=== PATIENT | female | born 1940 | race Caucasian/White ===

== ENCOUNTER 2018-01-03 17:45 | Inpatient (IN) | payer MEDICARE, MEDICAID ==
[~2018-01-03] VITALS: Ht 152.4 cm; Wt 42.0 kg
[~2018-01-03 17:45] MED LIST: DOCU-274 PO; FERR324T4 PO; GABA-532 PO; MULT-1074 PO; PANT40TA4 PO; TRAM50TA2 PO
[2018-01-03 19:06] LABS: BASOPHILS % (AUTO) 0.6 % (0-1); EOSINOPHILS # (AUTO) 0.5 X10'3 (0-0.9); EOSINOPHILS % (AUTO) 6.3 % (0-6); LYMPHOCYTES # (AUTO) 1.5 X10'3 (1.1-4.8); MEAN CORPUSCULAR HEMOGLOBIN 26.8 PG (27.0-31.0); MEAN CORPUSCULAR HGB CONC 32.3 % (33.0-36.5); MEAN PLATELET VOLUME 8.1 FL (7.4-10.4); MONOCYTES # (AUTO) 0.6 X10'3 (0-0.9); MONOCYTES % (AUTO) 8.4 % (2-12); NEUTROPHILS # (AUTO) 4.6 X10'3 (1.8-7.7); NEUTROPHILS % (AUTO) 63.7 % (42-75); PLATELET COUNT 451 X10'3 (140-440); RED BLOOD COUNT 2.56 X10'6 (4.20-5.60); WHITE BLOOD COUNT 7.3 X10'3 (4.5-11.0)
[2018-01-03 19:16] LABS: HEMATOCRIT 21.2 % (35.0-45.0); HEMOGLOBIN 6.9 g/dl (12.0-16.0)
[2018-01-03 19:17] LABS: PROTHROMBIN TIME 10.3 SECONDS (9.0-12.0)
[2018-01-03 19:21] LABS: ALANINE AMINOTRANSFERASE 18 U/L (12-78); ALBUMIN 2.4 G/DL (3.4-5.0); ALBUMIN/GLOBULIN RATIO 0.4 (1.1-1.5); ALKALINE PHOSPHATASE 90 IU/L (46-116); ANION GAP 12 (8-16); ASPARTATE AMINO TRANSFERASE 32 U/L (10-37); BILIRUBIN,TOTAL 0.4 MG/DL (0.1-1.0); BLOOD UREA NITROGEN 15 MG/DL (7-18); BUN/CREATININE RATIO 23.1 (6.6-38.0); CALCIUM 8.4 MG/DL (8.5-10.1); CHLORIDE 103 MMOL/L (99-107); CREATININE 0.65 MG/DL (0.40-0.90); GLUCOSE 92 MG/DL (70-104); POTASSIUM 3.6 MMOL/L (3.5-5.1); SODIUM 139 MMOL/L (135-145); TOTAL CARBON DIOXIDE 24.2 MMOL/L (24-32); eGFR 88 ML/MIN
[2018-01-03] MEDS ORDERED: normal saline 1000ML IV soln IV ONE ×2 (19:40→19:45)
[2018-01-03] MEDS ORDERED: pantoprazole IV 80 MG in normal saline 100ml IV soln 100 ML IV ONE (19:45)
[2018-01-03] MEDS ORDERED: pantoprazole 40 MG vial IV SCH (19:55)
[2018-01-03 20:01] LABS: CLARITY,URINE CLEAR (Clear); COLOR,URINE STRAW (Yellow); GLUCOSE, URINE NEGATIVE (Neg); KETONES,URINE NEGATIVE (Neg); LEUKOCYTE ESTERASE ,URINE SMALL (Neg); NITRITES, URINE NEGATIVE (Neg); OCCULT BLOOD,URINE TRACE-INTACT (Neg); PH,URINE 7.5 (4.8-8.0); PROTEIN,URINE NEGATIVE (Neg); UROBILINOGEN,URINE 0.2 E.U/dL (0.2-1.0)
[2018-01-03 20:08] LABS: UA COLLECTION TYPE CLN CATCH MIDSTREAM
[2018-01-03 20:10] LABS: BACTERIA,URINE FEW /HPF (Neg); SQUAMOUS EPITHELIAL CELL,UR NONE SEEN /LPF (FEW)
[2018-01-03] MEDS ORDERED: CefTRIAXone 2gm/D5W 50ml 50 ML IV ONE (20:40)
[2018-01-03] MEDS: pantoprazole 40MG/NS 100ML BAG 100 ML IV SCH (21:09)
[2018-01-03] MEDS: normal saline 1000ml 1,000 ML IV SCH (21:58)
[2018-01-03] MEDS ORDERED: morphine 2 MG/ML inj. syringe IV PRN (22:00)
[2018-01-03] MEDS ORDERED: acetaminophen 325mg tablet PO PRN (22:00)
[2018-01-03] MEDS ORDERED: docusate sod 100mg capsule PO PRN (22:00)
[2018-01-03] MEDS ORDERED: mag hydrox/Alum hydrox/simeth 30ml oral suspension PO PRN (22:00)
[2018-01-03] MEDS ORDERED: ondansetron/PF 4mg/2ml inj IV PRN (22:00)
[2018-01-03] MEDS ORDERED: magnesium hydroxide 30ml (MOM) UD suspension PO PRN (22:00)
[2018-01-03] MEDS ORDERED: ipratropium/albuterol 3ml nebule NEB PRN (22:05)
[2018-01-03] MEDS ORDERED: azithromycin/NS 500mg/250ml 250 ML IV SCH (22:05)
[2018-01-03] MEDS ORDERED: HYDROcodone/acetaminophen 10/325mg tab PO PRN (22:20)
[2018-01-03] MEDS ORDERED: BUSP5TAB3 PO (22:35)
[2018-01-03] MEDS ORDERED: TRAM50TA2 PO (22:36)
[2018-01-03] MEDS ORDERED: MELO-102 PO (22:37)
[2018-01-03] MEDS ORDERED: DIPH25CA83 PO (22:37)
[2018-01-03] MEDS ORDERED: gabapentin 300mg capsule PO PRN (22:45)
[2018-01-03] MEDS: HYDROcodone/acetaminophen 10/325mg tab PO PRN (23:56)
[2018-01-04] VITALS (19 sets, daily range): BP systolic 117–179; BP diastolic 51–98
[2018-01-04] MEDS: diphenhydrAMINE 25mg capsule PO PRN (00:19)
[2018-01-04] MEDS: HYDROcodone/acetaminophen 10/325mg tab PO PRN (04:30)
[2018-01-04] MEDS ORDERED: LORazepam 0.5 MG tablet PO PRN (05:05)
[2018-01-04] MEDS: pantoprazole 40MG/NS 100ML BAG 100 ML IV SCH ×6 (06:00→23:07)
[2018-01-04] MEDS: normal saline 1000ml 1,000 ML IV SCH (07:58)
[2018-01-04] MEDS: busPIRone 5mg tablet PO SCH ×2 (08:00→21:00)
[2018-01-04] MEDS ORDERED: furosemide 40mg/4ml inj IV ONE (08:35)
[2018-01-04] MEDS ORDERED: morphine 2 MG/ML inj. syringe IV ONE (08:35)
[2018-01-04 09:12] LABS: BASOPHILS # (AUTO) 0.1 X10'3 (0-0.2); BASOPHILS % (AUTO) 0.9 % (0-1); EOSINOPHILS # (AUTO) 0.4 X10'3 (0-0.9); EOSINOPHILS % (AUTO) 5.3 % (0-6); HEMATOCRIT 35.3 % (35.0-45.0); HEMOGLOBIN 11.5 g/dl (12.0-16.0); LYMPHOCYTES % (AUTO) 28.6 % (21-51); MEAN CORPUSCULAR HEMOGLOBIN 28.2 PG (27.0-31.0); MEAN CORPUSCULAR HGB CONC 32.7 % (33.0-36.5); MEAN CORPUSCULAR VOLUME 86.1 FL (78-98); MEAN PLATELET VOLUME 8.5 FL (7.4-10.4); MONOCYTES # (AUTO) 0.7 X10'3 (0-0.9); MONOCYTES % (AUTO) 10.1 % (2-12); NEUTROPHILS # (AUTO) 3.8 X10'3 (1.8-7.7); NEUTROPHILS % (AUTO) 55.1 % (42-75); PLATELET COUNT 383 X10'3 (140-440); RED CELL DISTRIBUTION WIDTH 16.1 % (11.5-14.5); WHITE BLOOD COUNT 6.9 X10'3 (4.5-11.0)
[2018-01-04 09:23] LABS: TROPONIN I < 0.04 NG/ML (0.0-0.05)
[2018-01-04] MEDS ORDERED: LIDOcaine Viscous 15ml cup ONE (09:47)
[2018-01-04] MEDS ORDERED: fentaNYL/PF 50MCG/1 ML 2ML syringe ONE (09:47)
[2018-01-04] MEDS ORDERED: MIDAZolam 5mg/5ml vial ONE (09:47)
[2018-01-04 09:48] LABS: ALBUMIN 2.3 G/DL (3.4-5.0); ANION GAP 12 (8-16); BLOOD UREA NITROGEN 9 MG/DL (7-18); BUN/CREATININE RATIO 14.1 (6.6-38.0); CALCIUM 7.9 MG/DL (8.5-10.1); CHLORIDE 108 MMOL/L (99-107); CREATININE 0.64 MG/DL (0.40-0.90); GLUCOSE 118 MG/DL (70-104); POTASSIUM 3.5 MMOL/L (3.5-5.1); SODIUM 141 MMOL/L (135-145); TOTAL CARBON DIOXIDE 21.2 MMOL/L (24-32); eGFR 90 ML/MIN
[2018-01-04] MEDS: CefTRIAXone 2gm/D5W 50ml 50 ML IV SCH (11:41)
[2018-01-04] MEDS: potassium Cl 20 mEq SR tablet PO SCH ×2 (13:00→21:00)
[2018-01-04] MEDS ORDERED: LORazepam 2 mg/ml vial IV PRN ×2 (13:35→16:55)
[2018-01-04] MEDS: ipratropium/albuterol 3ml nebule NEB SCH ×3 (15:42→23:26)
[2018-01-04 16:15] LABS: BASOPHILS % (AUTO) 0.6 % (0-1); EOSINOPHILS # (AUTO) 0.3 X10'3 (0-0.9); EOSINOPHILS % (AUTO) 3.6 % (0-6); HEMATOCRIT 34.6 % (35.0-45.0); HEMOGLOBIN 11.5 g/dl (12.0-16.0); LYMPHOCYTES # (AUTO) 1.7 X10'3 (1.1-4.8); LYMPHOCYTES % (AUTO) 19.7 % (21-51); MEAN CORPUSCULAR HEMOGLOBIN 27.8 PG (27.0-31.0); MEAN CORPUSCULAR HGB CONC 33.2 % (33.0-36.5); MEAN CORPUSCULAR VOLUME 83.7 FL (78-98); MEAN PLATELET VOLUME 8.5 FL (7.4-10.4); MONOCYTES # (AUTO) 0.9 X10'3 (0-0.9); MONOCYTES % (AUTO) 10.3 % (2-12); NEUTROPHILS # (AUTO) 5.6 X10'3 (1.8-7.7); NEUTROPHILS % (AUTO) 65.8 % (42-75); PLATELET COUNT 464 X10'3 (140-440); RED BLOOD COUNT 4.13 X10'6 (4.20-5.60); RED CELL DISTRIBUTION WIDTH 16.2 % (11.5-14.5); WHITE BLOOD COUNT 8.5 X10'3 (4.5-11.0)
[2018-01-04] MEDS: furosemide 40mg/4ml inj IV SCH (16:47)
[2018-01-04] MEDS: morphine 2 MG/ML inj. syringe IV PRN ×2 (16:59→21:50)
[2018-01-04] MEDS: gabapentin 300mg capsule PO SCH (20:00)
[2018-01-04 20:55] LABS: BASOPHILS % (AUTO) 0.2 % (0-1); EOSINOPHILS % (AUTO) 0.5 % (0-6); HEMATOCRIT 38.6 % (35.0-45.0); HEMOGLOBIN 12.8 g/dl (12.0-16.0); LYMPHOCYTES % (AUTO) 11.3 % (21-51); MEAN CORPUSCULAR HEMOGLOBIN 27.6 PG (27.0-31.0); MEAN CORPUSCULAR VOLUME 83.6 FL (78-98); MEAN PLATELET VOLUME 8.3 FL (7.4-10.4); MONOCYTES # (AUTO) 0.7 X10'3 (0-0.9); MONOCYTES % (AUTO) 7.7 % (2-12); NEUTROPHILS # (AUTO) 7.1 X10'3 (1.8-7.7); NEUTROPHILS % (AUTO) 80.3 % (42-75); PLATELET COUNT 500 X10'3 (140-440); RED BLOOD COUNT 4.62 X10'6 (4.20-5.60); RED CELL DISTRIBUTION WIDTH 16.6 % (11.5-14.5); WHITE BLOOD COUNT 8.9 X10'3 (4.5-11.0)
[2018-01-05] VITALS: BP 115/53
[2018-01-05] MEDS: furosemide 40mg/4ml inj IV SCH ×2 (00:34→07:51)
[2018-01-05] MEDS: morphine 2 MG/ML inj. syringe IV PRN ×3 (01:55→18:25)
[2018-01-05] MEDS: ipratropium/albuterol 3ml nebule NEB SCH ×6 (03:14→23:11)
[2018-01-05] MEDS: pantoprazole 40MG/NS 100ML BAG 100 ML IV SCH ×2 (04:23→10:21)
[2018-01-05] MEDS: CefTRIAXone 2gm/D5W 50ml 50 ML IV SCH (07:53)
[2018-01-05 08:00] VITALS: BP 119/71
[2018-01-05] MEDS: potassium Cl 20 mEq SR tablet PO SCH ×3 (08:23→19:32)
[2018-01-05] MEDS: gabapentin 300mg capsule PO SCH ×2 (08:23→19:32)
[2018-01-05] MEDS: busPIRone 5mg tablet PO SCH ×3 (08:23→22:15)
[2018-01-05 10:01] LABS: BASOPHILS % (AUTO) 0.5 % (0-1); EOSINOPHILS # (AUTO) 0.1 X10'3 (0-0.9); EOSINOPHILS % (AUTO) 1.4 % (0-6); HEMATOCRIT 34.2 % (35.0-45.0); HEMOGLOBIN 11.4 g/dl (12.0-16.0); LYMPHOCYTES # (AUTO) 1.4 X10'3 (1.1-4.8); LYMPHOCYTES % (AUTO) 19.9 % (21-51); MEAN CORPUSCULAR HEMOGLOBIN 28.4 PG (27.0-31.0); MEAN CORPUSCULAR HGB CONC 33.4 % (33.0-36.5); MEAN CORPUSCULAR VOLUME 85.1 FL (78-98); MEAN PLATELET VOLUME 8.6 FL (7.4-10.4); MONOCYTES # (AUTO) 0.6 X10'3 (0-0.9); MONOCYTES % (AUTO) 9.2 % (2-12); NEUTROPHILS # (AUTO) 4.7 X10'3 (1.8-7.7); PLATELET COUNT 495 X10'3 (140-440); RED BLOOD COUNT 4.02 X10'6 (4.20-5.60); RED CELL DISTRIBUTION WIDTH 16.4 % (11.5-14.5); WHITE BLOOD COUNT 6.8 X10'3 (4.5-11.0)
[2018-01-05 10:10] LABS: ALBUMIN 2.6 G/DL (3.4-5.0); ANION GAP 15 (8-16); BLOOD UREA NITROGEN 20 MG/DL (7-18); BUN/CREATININE RATIO 21.5 (6.6-38.0); CHLORIDE 104 MMOL/L (99-107); CREATININE 0.93 MG/DL (0.40-0.90); GLUCOSE 134 MG/DL (70-104); SODIUM 142 MMOL/L (135-145); TOTAL CARBON DIOXIDE 22.7 MMOL/L (24-32); eGFR 58 ML/MIN
[2018-01-05 10:14] LABS: POTASSIUM 2.8 MMOL/L (3.5-5.1)
[2018-01-05] MEDS ORDERED: potassium Cl 40MEQ/NS 500ml 500 ML IV PRN ×2 (10:40)
[2018-01-05] MEDS ORDERED: magnesium 1gm/100ml D5W IVPB 100 ML IV PRN (10:40)
[2018-01-05] MEDS ORDERED: magnesium Cl slow-release 64mg tablet PO PRN (10:40)
[2018-01-05] MEDS ORDERED: potassium Cl 20 mEq SR tablet PO PRN (10:40)
[2018-01-05] MEDS ORDERED: magnesium 4gm in 100ml NS 100 ML IV PRN (10:40)
[2018-01-05 11:00] VITALS: BP 100/47
[2018-01-05 12:38] VITALS: BP_SYST 100; BP_SYST 109; BP_SYST 119; BP_DIAS 47; BP_DIAS 61; BP_DIAS 78
[2018-01-05] MEDS: traMADol 50MG tablet PO PRN ×2 (12:48→22:16)
[2018-01-05] MEDS: lactose-reduced food (Ensure Enlive) - 237ml bottle PO SCH ×2 (13:00→17:51)
[2018-01-05 13:04] LABS: H PYLORI ANTIBODY NEGATIVE (Neg)
[2018-01-05] MEDS: furosemide 20 MG/2 ML vial IV SCH (16:46)
[2018-01-05] MEDS: potassium Cl 20 mEq SR tablet PO PRN ×2 (16:47→22:15)
[2018-01-05] MEDS ORDERED: normal saline 250ml IV soln 250 ML IV ONE (17:10)
[2018-01-05 19:00] VITALS: BP_SYST 114; BP_SYST 118; BP_SYST 98; BP_DIAS 50; BP_DIAS 56; BP_DIAS 76
[2018-01-05] MEDS: pantoprazole 40 MG vial IV SCH (19:31)
[2018-01-05] MEDS: lactobacillus rhamnosus 10,000 MMU CELLS/CAPSULE PO SCH (19:37)
[2018-01-06] VITALS (7 sets, daily range): BP systolic 89–131; BP diastolic 44–75
[2018-01-06] MEDS: morphine 2 MG/ML inj. syringe IV PRN ×3 (02:39→16:02)
[2018-01-06] MEDS: ipratropium/albuterol 3ml nebule NEB SCH ×6 (04:02→23:23)
[2018-01-06 05:08] LABS: BASOPHILS # (AUTO) 0.1 X10'3 (0-0.2); BASOPHILS % (AUTO) 0.6 % (0-1); EOSINOPHILS # (AUTO) 0.5 X10'3 (0-0.9); EOSINOPHILS % (AUTO) 5.5 % (0-6); HEMATOCRIT 31.2 % (35.0-45.0); HEMOGLOBIN 10.3 g/dl (12.0-16.0); LYMPHOCYTES # (AUTO) 1.9 X10'3 (1.1-4.8); LYMPHOCYTES % (AUTO) 22.4 % (21-51); MEAN CORPUSCULAR HEMOGLOBIN 28.7 PG (27.0-31.0); MEAN CORPUSCULAR HGB CONC 33.1 % (33.0-36.5); MEAN CORPUSCULAR VOLUME 86.8 FL (78-98); MEAN PLATELET VOLUME 8.7 FL (7.4-10.4); MONOCYTES # (AUTO) 0.7 X10'3 (0-0.9); MONOCYTES % (AUTO) 8.2 % (2-12); NEUTROPHILS # (AUTO) 5.5 X10'3 (1.8-7.7); NEUTROPHILS % (AUTO) 63.3 % (42-75); PLATELET COUNT 480 X10'3 (140-440); RED BLOOD COUNT 3.59 X10'6 (4.20-5.60); RED CELL DISTRIBUTION WIDTH 17.3 % (11.5-14.5); WHITE BLOOD COUNT 8.7 X10'3 (4.5-11.0)
[2018-01-06 05:31] LABS: ALBUMIN 2.3 G/DL (3.4-5.0); ANION GAP 14 (8-16); BLOOD UREA NITROGEN 23 MG/DL (7-18); BUN/CREATININE RATIO 17.6 (6.6-38.0); CALCIUM 8.1 MG/DL (8.5-10.1); CHLORIDE 105 MMOL/L (99-107); CREATININE 1.31 MG/DL (0.40-0.90); GLUCOSE 162 MG/DL (70-104); MAGNESIUM 1.8 MG/DL (1.5-2.4); POTASSIUM 4.3 MMOL/L (3.5-5.1); SODIUM 138 MMOL/L (135-145); TOTAL CARBON DIOXIDE 18.6 MMOL/L (24-32); eGFR 39 ML/MIN
[2018-01-06] MEDS: potassium Cl 20 mEq SR tablet PO SCH ×3 (07:38→19:44)
[2018-01-06] MEDS: lactobacillus rhamnosus 10,000 MMU CELLS/CAPSULE PO SCH ×2 (07:38→19:43)
[2018-01-06] MEDS: gabapentin 300mg capsule PO SCH ×2 (07:38→19:43)
[2018-01-06] MEDS: pantoprazole 40 MG vial IV SCH ×2 (07:38→19:43)
[2018-01-06] MEDS: furosemide 20 MG/2 ML vial IV SCH ×3 (07:39→19:43)
[2018-01-06] MEDS: CefTRIAXone 2gm/D5W 50ml 50 ML IV SCH (07:39)
[2018-01-06] MEDS: traMADol 50MG tablet PO PRN ×2 (07:39→19:44)
[2018-01-06] MEDS: busPIRone 5mg tablet PO SCH ×3 (07:39→19:43)
[2018-01-06] MEDS: lactose-reduced food (Ensure Enlive) - 237ml bottle PO SCH ×3 (07:53→17:26)
[2018-01-06] MEDS: carVEDilol 3.125mg tablet PO SCH (19:44)
[2018-01-07 00:12] VITALS: BP 97/57
[2018-01-07] MEDS: ipratropium/albuterol 3ml nebule NEB SCH ×6 (03:41→23:26)
[2018-01-07 06:50] LABS: BASOPHILS % (AUTO) 0.6 % (0-1); EOSINOPHILS # (AUTO) 0.6 X10'3 (0-0.9); EOSINOPHILS % (AUTO) 8.5 % (0-6); HEMATOCRIT 35.7 % (35.0-45.0); HEMOGLOBIN 11.8 g/dl (12.0-16.0); LYMPHOCYTES # (AUTO) 1.6 X10'3 (1.1-4.8); LYMPHOCYTES % (AUTO) 23.5 % (21-51); MEAN CORPUSCULAR HEMOGLOBIN 29.3 PG (27.0-31.0); MEAN CORPUSCULAR HGB CONC 33.2 % (33.0-36.5); MEAN CORPUSCULAR VOLUME 88.2 FL (78-98); MEAN PLATELET VOLUME 8.5 FL (7.4-10.4); MONOCYTES # (AUTO) 0.8 X10'3 (0-0.9); MONOCYTES % (AUTO) 11.2 % (2-12); NEUTROPHILS # (AUTO) 3.8 X10'3 (1.8-7.7); NEUTROPHILS % (AUTO) 56.2 % (42-75); PLATELET COUNT 450 X10'3 (140-440); RED BLOOD COUNT 4.04 X10'6 (4.20-5.60); RED CELL DISTRIBUTION WIDTH 17.6 % (11.5-14.5); WHITE BLOOD COUNT 6.8 X10'3 (4.5-11.0)
[2018-01-07 06:56] LABS: ALBUMIN 2.4 G/DL (3.4-5.0); ANION GAP 13 (8-16); BLOOD UREA NITROGEN 19 MG/DL (7-18); BUN/CREATININE RATIO 22.9 (6.6-38.0); CHLORIDE 107 MMOL/L (99-107); CREATININE 0.83 MG/DL (0.40-0.90); GLUCOSE 61 MG/DL (70-104); MAGNESIUM 2.1 MG/DL (1.5-2.4); POTASSIUM 4.8 MMOL/L (3.5-5.1); SODIUM 141 MMOL/L (135-145); eGFR 67 ML/MIN
[2018-01-07 06:59] VITALS: BP 132/67
[2018-01-07] MEDS: lisinopril 2.5mg tablet PO SCH (07:31)
[2018-01-07] MEDS: pantoprazole 40 MG vial IV SCH ×2 (07:31→19:41)
[2018-01-07] MEDS: lactobacillus rhamnosus 10,000 MMU CELLS/CAPSULE PO SCH ×2 (07:31→19:42)
[2018-01-07] MEDS: CefTRIAXone 2gm/D5W 50ml 50 ML IV SCH (07:32)
[2018-01-07] MEDS: furosemide 20 MG/2 ML vial IV SCH ×2 (07:32→19:41)
[2018-01-07] MEDS: busPIRone 5mg tablet PO SCH ×3 (07:32→19:42)
[2018-01-07] MEDS: potassium Cl 20 mEq SR tablet PO SCH ×3 (07:32→19:42)
[2018-01-07] MEDS: traMADol 50MG tablet PO PRN ×2 (07:32→15:38)
[2018-01-07] MEDS: gabapentin 300mg capsule PO SCH ×2 (07:32→19:42)
[2018-01-07] MEDS: carVEDilol 3.125mg tablet PO SCH ×2 (07:32→19:42)
[2018-01-07 08:00] VITALS: BP_SYST 107; BP_SYST 112; BP_SYST 114; BP_DIAS 48; BP_DIAS 57; BP_DIAS 62
[2018-01-07] MEDS: lactose-reduced food (Ensure Enlive) - 237ml bottle PO SCH ×3 (08:00→17:41)
[2018-01-07] MEDS: acetaminophen 325mg tablet PO PRN (10:18)
[2018-01-07 11:00] VITALS: BP 112/57
[2018-01-07] MEDS: morphine 2 MG/ML inj. syringe IV PRN (19:43)
[2018-01-07] MEDS: diphenhydrAMINE 25mg capsule PO PRN (19:56)
[2018-01-07 20:00] VITALS: BP_SYST 108; BP_SYST 122; BP_SYST 126; BP_SYST 141; BP_DIAS 45; BP_DIAS 65; BP_DIAS 74; BP_DIAS 81
[2018-01-08] VITALS: BP 141/65
[2018-01-08] MEDS: traMADol 50MG tablet PO PRN ×2 (01:12→12:02)
[2018-01-08] MEDS: ipratropium/albuterol 3ml nebule NEB SCH ×2 (03:42→07:31)
[2018-01-08] MEDS: acetaminophen 325mg tablet PO PRN (05:30)
[2018-01-08 06:48] LABS: BASOPHILS % (AUTO) 0.6 % (0-1); EOSINOPHILS # (AUTO) 0.7 X10'3 (0-0.9); EOSINOPHILS % (AUTO) 9.9 % (0-6); HEMATOCRIT 31.8 % (35.0-45.0); HEMOGLOBIN 10.4 g/dl (12.0-16.0); LYMPHOCYTES # (AUTO) 1.6 X10'3 (1.1-4.8); LYMPHOCYTES % (AUTO) 21.2 % (21-51); MEAN CORPUSCULAR HEMOGLOBIN 28.3 PG (27.0-31.0); MEAN CORPUSCULAR HGB CONC 32.5 % (33.0-36.5); MEAN PLATELET VOLUME 8.7 FL (7.4-10.4); MONOCYTES # (AUTO) 0.8 X10'3 (0-0.9); MONOCYTES % (AUTO) 10.3 % (2-12); NEUTROPHILS # (AUTO) 4.3 X10'3 (1.8-7.7); PLATELET COUNT 505 X10'3 (140-440); RED BLOOD COUNT 3.66 X10'6 (4.20-5.60); RED CELL DISTRIBUTION WIDTH 17.7 % (11.5-14.5); WHITE BLOOD COUNT 7.4 X10'3 (4.5-11.0)
[2018-01-08 07:08] LABS: ALBUMIN 2.2 G/DL (3.4-5.0); ANION GAP 10 (8-16); BLOOD UREA NITROGEN 26 MG/DL (7-18); BUN/CREATININE RATIO 25.2 (6.6-38.0); CALCIUM 8.1 MG/DL (8.5-10.1); CHLORIDE 103 MMOL/L (99-107); CREATININE 1.03 MG/DL (0.40-0.90); GLUCOSE 88 MG/DL (70-104); POTASSIUM 5.3 MMOL/L (3.5-5.1); SODIUM 136 MMOL/L (135-145); TOTAL CARBON DIOXIDE 23.2 MMOL/L (24-32); eGFR 52 ML/MIN
[2018-01-08] MEDS: potassium Cl 20 mEq SR tablet PO SCH ×2 (08:00→12:05)
[2018-01-08 08:01] VITALS: BP 102/55
[2018-01-08] MEDS: pantoprazole 40 MG vial IV SCH (08:12)
[2018-01-08] MEDS: furosemide 20 MG/2 ML vial IV SCH (08:12)
[2018-01-08] MEDS: lactobacillus rhamnosus 10,000 MMU CELLS/CAPSULE PO SCH (08:12)
[2018-01-08] MEDS: gabapentin 300mg capsule PO SCH (08:12)
[2018-01-08] MEDS: carVEDilol 3.125mg tablet PO SCH (08:12)
[2018-01-08] MEDS: busPIRone 5mg tablet PO SCH ×2 (08:12→12:01)
[2018-01-08] MEDS: lisinopril 2.5mg tablet PO SCH (08:12)
[2018-01-08] MEDS: CefTRIAXone 2gm/D5W 50ml 50 ML IV SCH (08:12)
[2018-01-08] MEDS: lactose-reduced food (Ensure Enlive) - 237ml bottle PO SCH ×3 (08:13→18:28)
[2018-01-08 11:51] VITALS: BP 108/54
[2018-01-08] MEDS ORDERED: LACT1CAP26 PO (12:27)
[2018-01-08] MEDS ORDERED: CEFD300C3 PO (12:27)
[2018-01-08] MEDS ORDERED: LISI2.5T2 PO (12:27)
[2018-01-08] MEDS ORDERED: PANT20TA3 PO (12:27)
[2018-01-08] MEDS ORDERED: COR3.125T PO (12:27)
[2018-01-08] MEDS ORDERED: ipratropium/albuterol 3ml nebule NEB SCH (16:00)
[2018-01-08] MEDS ORDERED: pantoprazole 40mg Tablet.DR PO SCH (20:00)
[2018-01-10 15:25] LABS: OCCULT BLOOD STOOL POSITIVE (Neg)
== END 2018-01-08 18:15 | disposition home health service (06) | DRG 377 ==
LOC: ER 17:46 → ED HOLD 21:58 → SUR 3N 23:45
PROVIDERS: ADMIT Internal Medicine; ATTEND Internal Medicine
PROC: 0DB68ZX Excision of Stomach, Via Natural or Artificial Opening Endoscopic, Diagnostic (ICD-10-PCS; principal; 2018-01-04)
PROC: 30233N1 Transfusion of Nonautologous Red Blood Cells into Peripheral Vein, Percutaneous Approach (ICD-10-PCS; 2018-01-04)
DX: K25.4 Chronic or unspecified gastric ulcer with hemorrhage (principal); J96.00 Acute respiratory failure, unspecified whether with hypoxia or hypercapnia; I50.43 Acute on chronic combined systolic (congestive) and diastolic (congestive) heart failure; J18.9 Pneumonia, unspecified organism; D62 Acute posthemorrhagic anemia; E44.0 Moderate protein-calorie malnutrition; N39.0 Urinary tract infection, site not specified; Z68.1 Body mass index [BMI] 19.9 or less, adult; B96.4 Proteus (mirabilis) (morganii) as the cause of diseases classified elsewhere; E87.6 Hypokalemia; F03.90 Unspecified dementia, unspecified severity, without behavioral disturbance, psychotic disturbance, mood disturbance, and anxiety; G89.4 Chronic pain syndrome; Z60.2 Problems related to living alone; I11.0 Hypertensive heart disease with heart failure; R00.0 Tachycardia, unspecified; J84.10 Pulmonary fibrosis, unspecified; K21.9 Gastro-esophageal reflux disease without esophagitis; Z96.659 Presence of unspecified artificial knee joint; M06.9 Rheumatoid arthritis, unspecified; R19.7 Diarrhea, unspecified; N28.9 Disorder of kidney and ureter, unspecified; T39.395A Adverse effect of other nonsteroidal anti-inflammatory drugs [NSAID], initial encounter; Z78.1 Physical restraint status; Z90.710 Acquired absence of both cervix and uterus; Z23 Encounter for immunization; Z91.018 Allergy to other foods; Z79.899 Other long term (current) drug therapy; Z87.891 Personal history of nicotine dependence
CPT/HCPCS: 36415; 43239; 71045; 80048; 80053; 81001; 82272; 82948; 83605; 83735; 83880; 84132; 84145; 84484; 85025; 85610; 86677; 86885; 86900; 86901; 86920; 87040; 87070; 87077; 87088; 87186; 92616; 93005; 93306; 94640; 94760; 96374; 96375; 97116; 97161; 97530; 99153; 99291; A4315; A6196; A6257; A6258; A6266; C9113; J0456; J0696; J1940; J2060; J2250; J2270; J3010; J7030; P9016; Q0163

== ENCOUNTER 2018-02-10 22:54 | Emergency (ER) | payer MEDICARE, MEDICAID ==
[~2018-02-10] VITALS: Ht 154.9 cm; Wt 52.0 kg
[~2018-02-10 22:54] MED LIST changes: +BUSP5TAB3 PO; +COR3.125T PO; +DIPH25CA83 PO; -DOCU-274 PO; -FERR324T4 PO; +LACT1CAP26 PO; +LISI2.5T2 PO; -MULT-1074 PO; +PANT20TA3 PO; -PANT40TA4 PO
[2018-02-10 22:55] VITALS: BP 168/102
[2018-02-10 23:23] LABS: BASOPHILS % (AUTO) 0.3 % (0-1); EOSINOPHILS # (AUTO) 0.3 X10'3 (0-0.9); EOSINOPHILS % (AUTO) 6.2 % (0-6); HEMATOCRIT 34.2 % (35.0-45.0); HEMOGLOBIN 10.9 g/dl (12.0-16.0); LYMPHOCYTES # (AUTO) 1.5 X10'3 (1.1-4.8); LYMPHOCYTES % (AUTO) 28.6 % (21-51); MEAN CORPUSCULAR HGB CONC 31.9 % (33.0-36.5); MEAN CORPUSCULAR VOLUME 81.4 FL (78-98); MEAN PLATELET VOLUME 8.3 FL (7.4-10.4); MONOCYTES # (AUTO) 0.4 X10'3 (0-0.9); MONOCYTES % (AUTO) 7.9 % (2-12); NEUTROPHILS # (AUTO) 2.9 X10'3 (1.8-7.7); PLATELET COUNT 446 X10'3 (140-440); RED CELL DISTRIBUTION WIDTH 17.7 % (11.5-14.5); WHITE BLOOD COUNT 5.1 X10'3 (4.5-11.0)
[2018-02-10 23:36] LABS: INR 1.1 INR; PARTIAL THROMBOPLASTIN TIME 25 SECONDS (22-32); PROTHROMBIN TIME 10.9 SECONDS (9.0-12.0)
[2018-02-10 23:37] LABS: ALANINE AMINOTRANSFERASE 19 U/L (12-78); ALBUMIN 2.6 G/DL (3.4-5.0); ALBUMIN/GLOBULIN RATIO 0.4 (1.1-1.5); ALKALINE PHOSPHATASE 130 IU/L (46-116); ANION GAP 11 (8-16); ASPARTATE AMINO TRANSFERASE 30 U/L (10-37); BILIRUBIN,TOTAL 0.4 MG/DL (0.1-1.0); BLOOD UREA NITROGEN 16 MG/DL (7-18); BUN/CREATININE RATIO 21.9 (6.6-38.0); CALCIUM 8.4 MG/DL (8.5-10.1); CHLORIDE 102 MMOL/L (99-107); CREATININE 0.73 MG/DL (0.40-0.90); GLUCOSE 108 MG/DL (70-104); POTASSIUM 3.6 MMOL/L (3.5-5.1); SODIUM 137 MMOL/L (135-145); TOTAL CARBON DIOXIDE 24.1 MMOL/L (24-32); TOTAL PROTEIN 9.8 G/DL (6.4-8.2); eGFR 77 ML/MIN
[2018-02-11] MEDS ORDERED: traMADol 50MG tablet PO ONE (00:05)
== END 2018-02-11 01:50 | disposition home or self-care (01) ==
LOC: ER 22:55
DX: S00.83XA Contusion of other part of head, initial encounter (principal); R04.0 Epistaxis; I10 Essential (primary) hypertension; K21.9 Gastro-esophageal reflux disease without esophagitis; M19.90 Unspecified osteoarthritis, unspecified site; G89.29 Other chronic pain; Z90.710 Acquired absence of both cervix and uterus; Z98.890 Other specified postprocedural states; Z60.2 Problems related to living alone; Z91.018 Allergy to other foods; W18.39XA Other fall on same level, initial encounter; Y93.89 Activity, other specified; Y92.89 Other specified places as the place of occurrence of the external cause; Y99.8 Other external cause status
CPT/HCPCS: 36415; 70450; 72125; 80053; 85025; 85610; 85730; 86885; 86900; 86901; 99285

== ENCOUNTER 2018-02-18 19:57 | Inpatient (IN) | payer MEDICARE, MEDICAID ==
[~2018-02-18] VITALS: Ht 154.9 cm; Wt 48.5 kg
[2018-02-18] MEDS ORDERED: normal saline 1000ML IV soln IV ONE (21:05)
[2018-02-18] MEDS ORDERED: fentaNYL/PF 50MCG/1 ML 2ML syringe IV ONE (21:05)
[2018-02-18 21:20] LABS: CLARITY,URINE CLEAR (Clear); COLOR,URINE YELLOW (Yellow); GLUCOSE, URINE NEGATIVE (Neg); KETONES,URINE NEGATIVE (Neg); LEUKOCYTE ESTERASE ,URINE NEGATIVE (Neg); NITRITES, URINE NEGATIVE (Neg); OCCULT BLOOD,URINE MODERATE (Neg); PROTEIN,URINE NEGATIVE (Neg); UROBILINOGEN,URINE 0.2 E.U/dL (0.2-1.0)
[2018-02-18 21:50] LABS: UA COLLECTION TYPE CLN CATCH MIDSTREAM
[2018-02-18] MEDS ORDERED: CefTRIAXone 2gm/D5W 50ml 50 ML IV ONE (21:50)
[2018-02-18 21:52] LABS: BACTERIA,URINE NONE SEEN /HPF (Neg); SQUAMOUS EPITHELIAL CELL,UR FEW /LPF (FEW); WBC,URINE NONE SEEN /HPF (0-4)
[2018-02-18 22:39] LABS: ALANINE AMINOTRANSFERASE 19 U/L (12-78); ALBUMIN 2.6 G/DL (3.4-5.0); ALBUMIN/GLOBULIN RATIO 0.4 (1.1-1.5); ALKALINE PHOSPHATASE 104 IU/L (46-116); ANION GAP 15 (8-16); ASPARTATE AMINO TRANSFERASE 36 U/L (10-37); BILIRUBIN,TOTAL 0.6 MG/DL (0.1-1.0); BLOOD UREA NITROGEN 14 MG/DL (7-18); BUN/CREATININE RATIO 17.3 (6.6-38.0); CALCIUM 8.2 MG/DL (8.5-10.1); CHLORIDE 102 MMOL/L (99-107); CREATININE 0.81 MG/DL (0.40-0.90); GLUCOSE 92 MG/DL (70-104); POTASSIUM 3.9 MMOL/L (3.5-5.1); SODIUM 136 MMOL/L (135-145); TOTAL CARBON DIOXIDE 19.2 MMOL/L (24-32); TOTAL PROTEIN 9.6 G/DL (6.4-8.2); eGFR 69 ML/MIN
[2018-02-19 01:34] LABS: MAGNESIUM 1.5 MG/DL (1.5-2.4); TROPONIN I < 0.04 NG/ML (0.0-0.05)
[2018-02-19] MEDS ORDERED: fentaNYL/PF 50MCG/1 ML 2ML syringe IV ONE (01:50)
[2018-02-19] MEDS ORDERED: acetaminophen 325mg tablet PO PRN ×2 (01:55)
[2018-02-19] MEDS ORDERED: magnesium hydroxide 30ml (MOM) UD suspension PO PRN (01:55)
[2018-02-19] MEDS ORDERED: ondansetron/PF 4mg/2ml inj IV PRN (01:55)
[2018-02-19] MEDS ORDERED: mag hydrox/Alum hydrox/simeth 30ml oral suspension PO PRN (01:55)
[2018-02-19] MEDS ORDERED: gabapentin 300mg capsule PO PRN (02:00)
[2018-02-19] MEDS: traMADol 50MG tablet PO SCH ×4 (02:35→19:54)
[2018-02-19 03:34] LABS: BASOPHILS % (AUTO) 0 % (0-1); EOSINOPHILS % (AUTO) 0 % (0-6); HEMATOCRIT 30.7 % (35.0-45.0); HEMOGLOBIN 9.7 g/dl (12.0-16.0); LYMPHOCYTES % (AUTO) 5.9 % (21-51); MEAN CORPUSCULAR HEMOGLOBIN 25.4 PG (27.0-31.0); MEAN CORPUSCULAR HGB CONC 31.7 % (33.0-36.5); MEAN CORPUSCULAR VOLUME 79.9 FL (78-98); MONOCYTES # (AUTO) 1.1 X10'3 (0-0.9); MONOCYTES % (AUTO) 6.5 % (2-12); NEUTROPHILS # (AUTO) 14.4 X10'3 (1.8-7.7); NEUTROPHILS % (AUTO) 87.6 % (42-75); PLATELET COUNT 504 X10'3 (140-440); RED BLOOD COUNT 3.84 X10'6 (4.20-5.60); RED CELL DISTRIBUTION WIDTH 17.5 % (11.5-14.5); WHITE BLOOD COUNT 16.5 X10'3 (4.5-11.0)
[2018-02-19 03:40] VITALS: BP 152/74
[2018-02-19 04:14] LABS: INR 1.1 INR; PARTIAL THROMBOPLASTIN TIME 27 SECONDS (22-32); PROTHROMBIN TIME 11.5 SECONDS (9.0-12.0)
[2018-02-19 08:00] VITALS: BP 143/93
[2018-02-19] MEDS: lactobacillus rhamnosus 10,000 MMU CELLS/CAPSULE PO SCH ×2 (08:30→19:53)
[2018-02-19] MEDS: pantoprazole 40mg Tablet.DR PO SCH (08:31)
[2018-02-19] MEDS: lisinopril 2.5mg tablet PO SCH (08:31)
[2018-02-19] MEDS: carVEDilol 3.125mg tablet PO SCH ×2 (08:31→19:53)
[2018-02-19] MEDS: busPIRone 5mg tablet PO SCH ×3 (08:31→21:48)
[2018-02-19 12:00] VITALS: BP 105/50
[2018-02-19] MEDS: vancomycin/NS 1 GM ADD-VANTAGE 250 ML IV SCH (13:36)
[2018-02-19 16:04] LABS: APPEARANCE,SYNOVIAL FLUID CLOUDY; COLOR,SYNOVIAL FLUID OTHER; SYN WBC 61845 /CU MM (0-200)
[2018-02-19 16:05] LABS: LYMPHOCYTES,SYNOVIAL FLUID 2 % (0-75); MONOCYTES,SYNOVIAL FLUID 3 % (0-0); NEUTROPHILS,SYNOVIAL FLUID 95 % (0-25)
[2018-02-19 18:52] LABS: SYN RBC 36890 /CU MM (0)
[2018-02-19 20:00] VITALS: BP 103/52
[2018-02-19] MEDS ORDERED: temazepam 15mg capsule PO PRN (21:00)
[2018-02-20] MEDS: traMADol 50MG tablet PO SCH ×4 (02:29→19:03)
[2018-02-20 02:36] VITALS: BP 113/52
[2018-02-20 05:07] LABS: BASOPHILS % (AUTO) 0.1 % (0-1); EOSINOPHILS % (AUTO) 0.1 % (0-6); HEMATOCRIT 28.6 % (35.0-45.0); LYMPHOCYTES % (AUTO) 6.5 % (21-51); MEAN CORPUSCULAR HEMOGLOBIN 25.5 PG (27.0-31.0); MEAN CORPUSCULAR HGB CONC 31.6 % (33.0-36.5); MEAN CORPUSCULAR VOLUME 80.4 FL (78-98); MEAN PLATELET VOLUME 8.6 FL (7.4-10.4); MONOCYTES # (AUTO) 1.3 X10'3 (0-0.9); MONOCYTES % (AUTO) 8.6 % (2-12); NEUTROPHILS % (AUTO) 84.7 % (42-75); PLATELET COUNT 400 X10'3 (140-440); RED BLOOD COUNT 3.55 X10'6 (4.20-5.60); RED CELL DISTRIBUTION WIDTH 17.5 % (11.5-14.5); WHITE BLOOD COUNT 15.3 X10'3 (4.5-11.0)
[2018-02-20 05:21] LABS: ALBUMIN 1.9 G/DL (3.4-5.0); ANION GAP 12 (8-16); BLOOD UREA NITROGEN 28 MG/DL (7-18); BUN/CREATININE RATIO 18.7 (6.6-38.0); CALCIUM 7.7 MG/DL (8.5-10.1); CHLORIDE 100 MMOL/L (99-107); GLUCOSE 106 MG/DL (70-104); SODIUM 134 MMOL/L (135-145); eGFR 34 ML/MIN
[2018-02-20 05:22] LABS: POTASSIUM 3.7 MMOL/L (3.5-5.1)
[2018-02-20 07:13] VITALS: BP 108/56
[2018-02-20] MEDS: busPIRone 5mg tablet PO SCH ×3 (07:59→20:33)
[2018-02-20] MEDS: pantoprazole 40mg Tablet.DR PO SCH (08:00)
[2018-02-20] MEDS: lisinopril 2.5mg tablet PO SCH (08:00)
[2018-02-20] MEDS: carVEDilol 3.125mg tablet PO SCH ×2 (08:00→20:00)
[2018-02-20] MEDS: lactobacillus rhamnosus 10,000 MMU CELLS/CAPSULE PO SCH ×2 (08:00→20:33)
[2018-02-20 11:19] VITALS: BP 88/53
[2018-02-20] MEDS: vancomycin/NS 1 GM ADD-VANTAGE 250 ML IV SCH (13:39)
[2018-02-20 14:24] VITALS: BP 100/79
[2018-02-20 20:00] VITALS: BP 100/43
[2018-02-21] VITALS: BP 100/43
[2018-02-21] MEDS: traMADol 50MG tablet PO SCH ×4 (01:41→19:33)
[2018-02-21] MEDS: pantoprazole 40mg Tablet.DR PO SCH (07:30)
[2018-02-21 07:32] VITALS: BP 108/43
[2018-02-21] MEDS: carVEDilol 3.125mg tablet PO SCH ×2 (08:00→19:33)
[2018-02-21] MEDS: lactobacillus rhamnosus 10,000 MMU CELLS/CAPSULE PO SCH ×2 (08:00→19:33)
[2018-02-21] MEDS: lisinopril 2.5mg tablet PO SCH (08:00)
[2018-02-21] MEDS: busPIRone 5mg tablet PO SCH ×3 (08:00→19:31)
[2018-02-21 11:41] VITALS: BP 118/49
[2018-02-21] MEDS: vancomycin/NS 1 GM ADD-VANTAGE 250 ML IV SCH (13:27)
[2018-02-21 19:00] VITALS: BP 103/54
[2018-02-22] VITALS: BP 116/50
[2018-02-22] MEDS: traMADol 50MG tablet PO SCH ×4 (02:13→19:22)
[2018-02-22 06:04] LABS: BASOPHILS % (AUTO) 0.3 % (0-1); EOSINOPHILS # (AUTO) 0.3 X10'3 (0-0.9); EOSINOPHILS % (AUTO) 3.1 % (0-6); LYMPHOCYTES # (AUTO) 1.1 X10'3 (1.1-4.8); LYMPHOCYTES % (AUTO) 11.7 % (21-51); MEAN CORPUSCULAR HEMOGLOBIN 25.8 PG (27.0-31.0); MEAN CORPUSCULAR VOLUME 80.8 FL (78-98); MEAN PLATELET VOLUME 8.1 FL (7.4-10.4); MONOCYTES # (AUTO) 1.2 X10'3 (0-0.9); MONOCYTES % (AUTO) 12.5 % (2-12); NEUTROPHILS # (AUTO) 6.8 X10'3 (1.8-7.7); NEUTROPHILS % (AUTO) 72.4 % (42-75); PLATELET COUNT 460 X10'3 (140-440); RED BLOOD COUNT 2.63 X10'6 (4.20-5.60); RED CELL DISTRIBUTION WIDTH 17.9 % (11.5-14.5); WHITE BLOOD COUNT 9.4 X10'3 (4.5-11.0)
[2018-02-22 06:09] LABS: ALBUMIN 1.6 G/DL (3.4-5.0); ANION GAP 11 (8-16); BLOOD UREA NITROGEN 37 MG/DL (7-18); BUN/CREATININE RATIO 30.6 (6.6-38.0); CALCIUM 7.7 MG/DL (8.5-10.1); CHLORIDE 105 MMOL/L (99-107); CREATININE 1.21 MG/DL (0.40-0.90); GLUCOSE 117 MG/DL (70-104); POTASSIUM 3.3 MMOL/L (3.5-5.1); SODIUM 137 MMOL/L (135-145); eGFR 43 ML/MIN
[2018-02-22 06:22] LABS: HEMOGLOBIN 6.8 g/dl (12.0-16.0)
[2018-02-22 06:23] LABS: HEMATOCRIT 21.2 % (35.0-45.0)
[2018-02-22 07:20] VITALS: BP 138/88
[2018-02-22] MEDS: pantoprazole 40mg Tablet.DR PO SCH (07:38)
[2018-02-22] MEDS: busPIRone 5mg tablet PO SCH ×3 (07:38→21:26)
[2018-02-22] MEDS: carVEDilol 3.125mg tablet PO SCH ×2 (07:38→19:32)
[2018-02-22] MEDS: lactobacillus rhamnosus 10,000 MMU CELLS/CAPSULE PO SCH ×2 (07:38→19:20)
[2018-02-22] MEDS: lisinopril 2.5mg tablet PO SCH (07:39)
[2018-02-22 09:30] LABS: HEMATOCRIT 25.1 % (35.0-45.0); MEAN CORPUSCULAR HEMOGLOBIN 25.1 PG (27.0-31.0); MEAN CORPUSCULAR VOLUME 78.4 FL (78-98); MEAN PLATELET VOLUME 8.4 FL (7.4-10.4); PLATELET COUNT 449 X10'3 (140-440); RED CELL DISTRIBUTION WIDTH 18.1 % (11.5-14.5); WHITE BLOOD COUNT 9.7 X10'3 (4.5-11.0)
[2018-02-22] MEDS ORDERED: VANCOMYCIN LEVEL IV ONE (12:30)
[2018-02-22] MEDS: vancomycin/NS 1 GM ADD-VANTAGE 250 ML IV SCH (13:38)
[2018-02-22] MEDS ORDERED: magnesium 4gm in 100ml NS 100 ML IV PRN (17:50)
[2018-02-22] MEDS ORDERED: magnesium Cl slow-release 64mg tablet PO PRN (17:50)
[2018-02-22] MEDS ORDERED: potassium Cl 40MEQ/NS 500ml 500 ML IV PRN ×2 (17:50)
[2018-02-22] MEDS ORDERED: magnesium 1gm/100ml D5W IVPB 100 ML IV PRN (17:50)
[2018-02-22] MEDS ORDERED: potassium Cl 20 mEq SR tablet PO PRN ×2 (17:50)
[2018-02-22 19:00] VITALS: BP 117/43
[2018-02-22 19:30] VITALS: BP 95/43
[2018-02-22 21:43] LABS: MAGNESIUM 2.5 MG/DL (1.5-2.4); POTASSIUM 3.5 MMOL/L (3.5-5.1)
[2018-02-22 22:00] VITALS: BP 112/46
[2018-02-23] MEDS: traMADol 50MG tablet PO SCH ×4 (02:49→20:30)
[2018-02-23 05:34] LABS: BASOPHILS # (AUTO) 0.1 X10'3 (0-0.2); BASOPHILS % (AUTO) 0.9 % (0-1); EOSINOPHILS # (AUTO) 0.4 X10'3 (0-0.9); HEMATOCRIT 26.1 % (35.0-45.0); HEMOGLOBIN 8.2 g/dl (12.0-16.0); LYMPHOCYTES # (AUTO) 1.3 X10'3 (1.1-4.8); LYMPHOCYTES % (AUTO) 13.4 % (21-51); MEAN CORPUSCULAR HEMOGLOBIN 25.2 PG (27.0-31.0); MEAN CORPUSCULAR HGB CONC 31.5 % (33.0-36.5); MEAN PLATELET VOLUME 8.4 FL (7.4-10.4); MONOCYTES # (AUTO) 1.2 X10'3 (0-0.9); MONOCYTES % (AUTO) 12.8 % (2-12); NEUTROPHILS # (AUTO) 6.5 X10'3 (1.8-7.7); NEUTROPHILS % (AUTO) 68.9 % (42-75); PLATELET COUNT 499 X10'3 (140-440); RED BLOOD COUNT 3.26 X10'6 (4.20-5.60); RED CELL DISTRIBUTION WIDTH 18.1 % (11.5-14.5); WHITE BLOOD COUNT 9.5 X10'3 (4.5-11.0)
[2018-02-23 06:04] LABS: ALBUMIN 1.8 G/DL (3.4-5.0); ANION GAP 11 (8-16); BLOOD UREA NITROGEN 28 MG/DL (7-18); BUN/CREATININE RATIO 26.7 (6.6-38.0); CALCIUM 8.7 MG/DL (8.5-10.1); CHLORIDE 104 MMOL/L (99-107); CREATININE 1.05 MG/DL (0.40-0.90); GLUCOSE 108 MG/DL (70-104); MAGNESIUM 2.3 MG/DL (1.5-2.4); POTASSIUM 3.7 MMOL/L (3.5-5.1); SODIUM 137 MMOL/L (135-145); TOTAL CARBON DIOXIDE 22.4 MMOL/L (24-32); eGFR 51 ML/MIN
[2018-02-23 07:05] VITALS: BP 157/67
[2018-02-23] MEDS: pantoprazole 40mg Tablet.DR PO SCH (09:43)
[2018-02-23] MEDS: busPIRone 5mg tablet PO SCH ×3 (09:43→20:30)
[2018-02-23] MEDS: lactobacillus rhamnosus 10,000 MMU CELLS/CAPSULE PO SCH ×2 (09:44→20:30)
[2018-02-23] MEDS: carVEDilol 3.125mg tablet PO SCH ×2 (09:44→20:39)
[2018-02-23] MEDS: lisinopril 2.5mg tablet PO SCH (09:44)
[2018-02-23 12:30] VITALS: BP 98/42
[2018-02-23] MEDS: vancomycin/NS 1 GM ADD-VANTAGE 250 ML IV SCH (13:08)
[2018-02-23 19:00] VITALS: BP 122/57
[2018-02-23] MEDS: HYDROcodone/acetaminophen 5mg/325mg tablet PO PRN (23:26)
[2018-02-24] VITALS: BP 122/62
[2018-02-24] MEDS: traMADol 50MG tablet PO SCH ×4 (02:12→19:49)
[2018-02-24 06:44] LABS: ALBUMIN 1.6 G/DL (3.4-5.0); ANION GAP 8 (8-16); BLOOD UREA NITROGEN 24 MG/DL (7-18); BUN/CREATININE RATIO 20.9 (6.6-38.0); CALCIUM 8.4 MG/DL (8.5-10.1); CHLORIDE 108 MMOL/L (99-107); CREATININE 1.15 MG/DL (0.40-0.90); GLUCOSE 97 MG/DL (70-104); MAGNESIUM 2.3 MG/DL (1.5-2.4); POTASSIUM 3.7 MMOL/L (3.5-5.1); SODIUM 141 MMOL/L (135-145); TOTAL CARBON DIOXIDE 24.9 MMOL/L (24-32); eGFR 46 ML/MIN
[2018-02-24 06:56] LABS: BASOPHILS % (AUTO) 0.4 % (0-1); EOSINOPHILS # (AUTO) 0.4 X10'3 (0-0.9); EOSINOPHILS % (AUTO) 5.4 % (0-6); HEMATOCRIT 26.5 % (35.0-45.0); HEMOGLOBIN 8.4 g/dl (12.0-16.0); LYMPHOCYTES # (AUTO) 1.2 X10'3 (1.1-4.8); LYMPHOCYTES % (AUTO) 15.6 % (21-51); MEAN CORPUSCULAR HEMOGLOBIN 24.9 PG (27.0-31.0); MEAN CORPUSCULAR HGB CONC 31.6 % (33.0-36.5); MEAN CORPUSCULAR VOLUME 78.7 FL (78-98); MEAN PLATELET VOLUME 8.6 FL (7.4-10.4); MONOCYTES % (AUTO) 13.4 % (2-12); NEUTROPHILS # (AUTO) 5.1 X10'3 (1.8-7.7); NEUTROPHILS % (AUTO) 65.2 % (42-75); PLATELET COUNT 454 X10'3 (140-440); RED BLOOD COUNT 3.37 X10'6 (4.20-5.60); RED CELL DISTRIBUTION WIDTH 18.5 % (11.5-14.5); WHITE BLOOD COUNT 7.8 X10'3 (4.5-11.0)
[2018-02-24 08:00] VITALS: BP 115/55
[2018-02-24] MEDS: lisinopril 2.5mg tablet PO SCH (08:00)
[2018-02-24] MEDS: carVEDilol 3.125mg tablet PO SCH ×2 (08:00→20:52)
[2018-02-24] MEDS: lactobacillus rhamnosus 10,000 MMU CELLS/CAPSULE PO SCH ×2 (08:23→19:47)
[2018-02-24] MEDS: pantoprazole 40mg Tablet.DR PO SCH (08:23)
[2018-02-24] MEDS: busPIRone 5mg tablet PO SCH ×3 (08:23→20:52)
[2018-02-24 08:30] VITALS: BP_SYST 118; BP_SYST 98; BP_DIAS 44; BP_DIAS 58
[2018-02-24 12:17] VITALS: BP 108/50
[2018-02-24] MEDS ORDERED: magnesium hydroxide 30ml (MOM) UD suspension PO PRN (12:25)
[2018-02-24] MEDS: vancomycin/NS 1 GM ADD-VANTAGE 250 ML IV SCH (13:06)
[2018-02-24] MEDS ORDERED: HYDROcodone/acetaminophen 10/325mg tab PO PRN (14:25)
[2018-02-24] MEDS ORDERED: lactose-reduced food (Ensure Enlive) - 237ml bottle PO SCH (18:00)
[2018-02-24 20:00] VITALS: BP 128/59
[2018-02-25] VITALS: BP 135/63
[2018-02-25] MEDS: traMADol 50MG tablet PO SCH ×3 (03:06→13:18)
[2018-02-25] MEDS: HYDROcodone/acetaminophen 5mg/325mg tablet PO PRN (05:42)
[2018-02-25 07:01] VITALS: BP 122/49
[2018-02-25 07:25] LABS: MAGNESIUM 2.5 MG/DL (1.5-2.4); POTASSIUM 3.7 MMOL/L (3.5-5.1)
[2018-02-25] MEDS: lisinopril 2.5mg tablet PO SCH (08:00)
[2018-02-25] MEDS: pantoprazole 40mg Tablet.DR PO SCH (09:41)
[2018-02-25] MEDS: busPIRone 5mg tablet PO SCH ×2 (09:41→13:18)
[2018-02-25] MEDS: lactobacillus rhamnosus 10,000 MMU CELLS/CAPSULE PO SCH (09:42)
[2018-02-25] MEDS: carVEDilol 3.125mg tablet PO SCH (09:43)
[2018-02-25 12:00] VITALS: BP 125/71
[2018-02-25] MEDS: vancomycin/NS 1 GM ADD-VANTAGE 250 ML IV SCH (14:15)
[2018-02-26] MEDS ORDERED: enoxaparin 30mg/0.3ml syringe SUBCUT SCH (08:00)
== END 2018-02-25 16:50 | DRG 559 ==
LOC: ER 19:57 → ED HOLD 02-19 01:55 → SUR 3N 02-19 03:40
PROVIDERS: ADMIT Hospitalist; ATTEND Internal Medicine
PROC: 0S9C3ZZ Drainage of Right Knee Joint, Percutaneous Approach (ICD-10-PCS; principal; 2018-02-20)
PROC: 02HV33Z Insertion of Infusion Device into Superior Vena Cava, Percutaneous Approach (ICD-10-PCS; 2018-02-25)
PROC: B548ZZA Ultrasonography of Superior Vena Cava, Guidance (ICD-10-PCS; 2018-02-25)
DX: T84.53XA Infection and inflammatory reaction due to internal right knee prosthesis, initial encounter (principal); A41.9 Sepsis, unspecified organism; E43 Unspecified severe protein-calorie malnutrition; E87.2 Acidosis; F11.23 Opioid dependence with withdrawal; I50.22 Chronic systolic (congestive) heart failure; N17.9 Acute kidney failure, unspecified; J84.10 Pulmonary fibrosis, unspecified; F03.90 Unspecified dementia, unspecified severity, without behavioral disturbance, psychotic disturbance, mood disturbance, and anxiety; J98.4 Other disorders of lung; Z60.2 Problems related to living alone; K59.00 Constipation, unspecified; W06.XXXA Fall from bed, initial encounter; F32.9 Major depressive disorder, single episode, unspecified; B95.62 Methicillin resistant Staphylococcus aureus infection as the cause of diseases classified elsewhere; D63.8 Anemia in other chronic diseases classified elsewhere; G89.29 Other chronic pain; I11.0 Hypertensive heart disease with heart failure; K21.9 Gastro-esophageal reflux disease without esophagitis; M06.9 Rheumatoid arthritis, unspecified; Y83.1 Surgical operation with implant of artificial internal device as the cause of abnormal reaction of the patient, or of later complication, without mention of misadventure at the time of the procedure; Z90.710 Acquired absence of both cervix and uterus; Z91.81 History of falling; Z91.018 Allergy to other foods; Z79.899 Other long term (current) drug therapy; Z68.20 Body mass index [BMI] 20.0-20.9, adult; Y93.89 Activity, other specified; Y92.098 Other place in other non-institutional residence as the place of occurrence of the external cause; Y99.8 Other external cause status
CPT/HCPCS: 36415; 36569; 70450; 71045; 73560; 74176; 76937; 80048; 80053; 80202; 81001; 83605; 83735; 83880; 84132; 84145; 84484; 85025; 85027; 85610; 85730; 87040; 87070; 87075; 87077; 87186; 87502; 87503; 89051; 93005; 93970; 96365; 97110; 97116; 97161; 97530; 99285; G0378; J0696; J3010; J3370